=== PATIENT | male | born 1955 | race African-American/Black ===

== ENCOUNTER → 2017-01-25 | Outpatient (CLI) | payer OTHER ==
[~2017-01-25] MED LIST: APRESOLINE-DPS50 MG PO; B & O SUPP 16.1 SUPP RC; CASODEX50 MG PO; CUBICIN RF500 MG IV; DECADRON-DPS1 MG PO; DILAUDID2 MG PO; DUONEB DPS3 ML IH; DURAGESIC DPS75 MCG TP; EFFEXOR XR DPS150 MG PO; ELIGARD22.5 MG SQ; GABAPENTIN600 MG PO; HYDROCODON-ACE1 EAC4 PO; LANTUS100 UNITS/ SQ; LUPRON DEPOT22.5 MG IM; MAALOX DPS30 ML PO; MAXIPIME2 GM IV; MIRALAX PACKET17 GM PO; NORVASC5 MG PO; PEPCID DPS20 MG PO; PLAVIX75 MG PO; SENOKOT S1 TAB PO; SURFAK240 MG PO; TRIMPEX DPS100 MG PO; TYLENOL DPS325 MG PO; XANAX DPS0.25 MG PO; ZOFRAN4 MG PO
== END | disposition home or self-care (01) ==
LOC: THER.SSS 09:34
DX: D64.81 Anemia due to antineoplastic chemotherapy (principal); C61 Malignant neoplasm of prostate